=== PATIENT | male | born 1965 | race Caucasian/White ===

== ENCOUNTER 2016-08-24 06:12 | Day surgery (SDC) | payer BC ==
--- NOTE | 2016-07-26 07:23 | HP ---
CC: Dr. Daria Paige * HISTORY AND PHYSICAL: DATE OF PLANNED ADMISSION AND SURGERY: 08/24/16 HISTORY OF PRESENT ILLNESS: Mr. Prabhakar is a 50-year-old white male, who is admitted with a large left hydrocele for surgical repair. Mr. Prabhakar was noted to have a large left hydrocele about more than 10 years ago. He had a scrotal ultrasound, which confirmed the above finding. Because the patient was not bothered by the condition, he did not seek any surgical correction and has been managing it most conservatively. Over the last 2 to 3 years, the hydrocele has gotten a lot larger, and has been more symptomatic interfering with his physical activities. It is also causing a feeling of heaviness and pulling sensation in the left scrotum and inguinal area. There is no history of any inguinal or scrotal trauma or surgery. No history of any voiding symptoms. PAST MEDICAL HISTORY AND SYSTEM REVIEW: He is hypertensive, controlled on doxazosin 4 mg daily and on lisinopril/HCTZ 20/12.5 mg daily. He has hyperlipidemia, on atorvastatin 10 mg daily. He has borderline diabetes , but is not on any treatment. He has history of gout, on allopurinol 100 mg daily. He has history of sleep apnea which has improved significantly after he lost weight on diet. He denies any allergies to medications. There is no history of any cardiac or pulmonary diseases or symptoms. He is a nonsmoker. FAMILY HISTORY: Negative for prostate carcinoma. PHYSICAL EXAMINATION GENERAL: Moderately overweight, otherwise healthy looking white male. VITAL SIGNS: Blood pressure 140/100. HEART: Regular and rhythmic. No murmurs. LUNGS: Clear. ABDOMEN: Soft. No masses, no tenderness, and no CVA tenderness. EXTERNAL GENITALIA: Circumcised. There are no penile lesions. The right testis feels normal. There is a very large left hydrocele measuring about 15 cm in diameter. No inguinal hernia is noted. The hydrocele is nonreducible. RECTAL: Exam shows a non-enlarged and non-suspicious prostate. LABORATORY DATA: Urinalysis is negative. For further evaluation of the left scrotal swelling, the patient had a scrotal ultrasound in the office. The study confirmed a very large left hydrocele. The left testis looked normal. The right testis looked normal. IMPRESSION: Large symptomatic left hydrocele. PLAN: For surgical repair through a scrotal approach. I discussed the operation in detail. Some of the potential complications including infection and hematoma were discussed. The patient also understands that there will be a significant degree of post- operative swelling, which might last for several weeks, but will ultimately resolve. All his questions were answered. [id number]/[facility] #: [id number] LEONCIO
[~2016-08-24 06:12] MED LIST: Buffered Lidocaine 0.9% SYRIN* 5 ML/SYR SYRINGE INTRADERM ONE
[2016-08-24] MEDS ORDERED: cefTRIAXone(*) 2 GM ADDV.VIAL IVPB ONE (06:19)
[2016-08-24] MEDS ORDERED: Buffered Lidocaine 0.9% SYRIN* 5 ML/SYR SYRINGE ONE (06:19)
[2016-08-24] MEDS ORDERED: Bupivacaine 0.5% SDV PF* 30 ML VIAL ONE (07:19)
[2016-08-24] MEDS ORDERED: Midazolam* 1 MG/ML 5 ML VIAL (5 MG) ONE (07:31)
[2016-08-24] MEDS ORDERED: Propofol* 10 MG/ML 20 ML BTL IV PUSH ONE (07:31)
[2016-08-24] MEDS ORDERED: fentaNYL* 50 MCG/ML 2 ML VIAL (100 MCG VIAL) ONE ×2 (07:31→08:26)
[2016-08-24] MEDS ORDERED: Dexamethasone IV* 4 MG/ML 1 ML (4 MG) ONE (07:31)
[2016-08-24] MEDS ORDERED: Atracurium* 10 MG/ML 10 ML VIAL ONE (07:31)
[2016-08-24] MEDS ORDERED: Succinylcholine* 20 MG/ML 10 ML VIAL ONE (07:59)
[2016-08-24] MEDS ORDERED: Ondansetron INJ* 2 MG/ML VIAL ONE ×2 (08:48→10:37)
[2016-08-24] MEDS ORDERED: HYDROmorphone* 1 MG/ML 1 ML SYR IV PRN (08:53)
[2016-08-24] MEDS ORDERED: HYDROcodone/ACETAMIN 5-325 MG* 1 TAB PO PRN (08:53)
[2016-08-24] MEDS ORDERED: DiMENhydriNATE IV* 50 MG/ML VIAL IV PUSH PRN (08:53)
[2016-08-24] MEDS ORDERED: Ondansetron INJ* 2 MG/ML VIAL IV PRN (08:53)
[2016-08-24] MEDS ORDERED: fentaNYL* 50 MCG/ML 2 ML VIAL (100 MCG VIAL) IV PRN (08:53)
[2016-08-24] MEDS ORDERED: oxyCODONE TAB* 5 MG TAB PO PRN (08:53)
[2016-08-24] MEDS ORDERED: Neostigmine Methylsulfate* 2 MG/2 ML SYRINGE ONE (09:11)
[2016-08-24] MEDS ORDERED: Glycopyrrolate IV* 0.2 MG/ML 1 ML VIAL ONE ×2 (09:11→09:18)
[2016-08-24] MEDS ORDERED: DiMENhydriNATE IV* 50 MG/ML VIAL ONE (09:54)
[2016-08-24] MEDS ORDERED: HYDROcodone/ACETAMIN 5-325 MG* 1 TAB ONE (10:44)
[2016-08-24] MEDS ORDERED: Scopolamine 1.5 mg* PATCH ONE ×2 (11:38)
[2016-08-24 11:45] VITALS: BP 139/100
--- NOTE | 2016-08-24 12:20 | OP ---
CC: Dr. Daria Paige * DATE OF OPERATION: 08/24/16 - [facility] DATE OF : 61 SURGEON: Torsten Pedraza MD [employer] DEVELOPER: VIOLETA Schulz ANESTHESIOLOGIST: Spencer Aly MD ANESTHESIA: General PRE-OP DIAGNOSIS: Left hydrocele. POST-OP DIAGNOSIS: Left hydrocele. OPERATIVE PROCEDURE: Left hydrocelectomy (scrotal approach). INDICATIONS: Mr. Prabhakar is a 50-year-old white male, who had progressive enlarging left hydrocele present for about 10 years. Scrotal ultrasound confirmed a large hydrocele with a normal-looking testicle. No history of any inguinal hernias. Because of the above history and the increasing size of the hydrocele, which has become significantly symptomatic, surgical repair was advised and accepted. FINDINGS: Pathology exam under anesthesia showed a 15-cm diameter left hydrocele. It was nonreducible. Upon left scrotal exploration, the hydrocele sac looked normal. A total of about 600 cc of hydrocele fluid was drained. The testicle looked and felt normal. There were no inguinal hernias noted. DESCRIPTION OF PROCEDURE: After successful general anesthesia with the patient in the supine position and after proper scrubbing and draping, a transverse incision was carried in the mid anterior left hemiscrotum. The incision was deepened through the dartos muscle. The hernia sac was identified and was dissected from the overlying dartos muscle and was delivered through the incision. The hydrocele sac was then opened and the fluid drained and measured. The hydrocele sac was then trimmed and partially excised in 2 portions. Care was taken not to interfere with the spermatic cord and its structures. The hydrocele sac was then everted and approximated to itself using a running locking suture of 4-0 Vicryl. Care was taken not to tighten the spermatic cord. Good hemostasis was achieved. The testicle was already placed in the scrotal cavity and the cavity was irrigated with saline. After making sure there was very good hemostasis, a [place] drain was left in the scrotal cavity and brought out through the lower aspect of the scrotum. The scrotal incision was then closed using a running suture of 4-0 Vicryl for the dartos muscle and the skin was closed using interrupted sutures of 4-0 chromic. The Naz drain was transfixed to the skin with a Prolene suture. The patient tolerated the procedure well and left the operating room in good condition. The blood loss was negligible. The specimen was portions of hydrocele sac. All the counts were correct. [id number]/[facility] #: [id number] [facility]ITAL[facility]
== END 2016-08-24 11:48 | disposition home or self-care (01) ==
LOC: OR 06:12
PROVIDERS: ATTEND Urology
DX: N43.2 Other hydrocele (principal); R73.03 Prediabetes; E78.5 Hyperlipidemia, unspecified; I10 Essential (primary) hypertension
CPT/HCPCS: 88302; A9270-GY; J0330; J0696; J1100; J1240; J2250; J2405; J2704; J3010

== ENCOUNTER 2016-12-30 08:20 | Day surgery (SDC) | payer BC ==
--- NOTE | 2016-12-29 18:58 | HP ---
CC: Dr. Daria Paige * HISTORY AND PHYSICAL: DATE OF PLANNED ADMISSION AND SURGERY: 12/30/16 HISTORY OF PRESENT ILLNESS: Mr. Prabhakar is a 51-year-old white male who is admitted with a left ureteral calculus for cystoscopy, left ureteroscopy, laser lithotripsy, and left ureteral stent placement. Mr. Prabhakar presented to the emergency room one week ago with symptoms of left renal colic. He had a noncontrast CT of the abdomen and pelvis, which showed a 5- mm calculus at the left ureterovesical junction. The patient was managed conservatively with pain medications and with alpha blockers. He continued to have on and off episodes of severe left flank pain requiring the frequent use of pain medications and oral narcotics for control. He had a renal ultrasound in the office, which showed a 6-mm calculus at the left ureterovesical junction associated with edema of the adjacent ureteral wall , mild left hydronephrosis, and decreased ureteral jets from the left orifice. The rest of the ultrasound was negative showing only simple renal cysts. Because of the frequent and recurrent episodes of acute flank pain, he has not been able to work with the condition and after discussing the options of management including continued conservative management, the patient is admitted for the above procedure. PAST MEDICAL HISTORY AND SYSTEM REVIEW: The patient had a left hydrocelectomy 4 months ago. It was uncomplicated, he did very well afterwards. He is hypertensive, maintained on doxazosin 4 mg daily, lisinopril/HCTZ 20/12.5 mg daily. He has hyperlipidemia, on Lipitor 10 mg daily. He has history of gout, on allopurinol 100 mg daily. He has borderline diabetes, on diet only, on no medications. He denies any history of any cardiac or pulmonary diseases or symptoms. ALLERGIES: He denies any allergies to medications. PHYSICAL EXAMINATION GENERAL: Pleasant white male, who looks in moderate pain. VITAL SIGNS: Blood pressure 150/90, pulse of 100, temperature 98. LUNGS: Normal. HEART: Normal. ABDOMEN: He has left CVA tenderness. EXTERNAL GENITALIA: Normal, and a well-healed left scrotal incision. IMPRESSION: A 6-mm calculus at the left ureterovesical junction with recurrent episodes of acute renal colic over the last week. PLAN: Considering the above history and the persistent pain, I gave the patient the option of continued conservative management versus proceeding with endoscopic stone extraction. The patient wants to proceed with the procedure. The plan therefore is for cystoscopy, left ureteroscopy, laser lithotripsy, and left ureteral stent placement. I discussed the procedure in detail with the patient and his and all their questions were answered. [id number]/[facility] #: [id number] MTDD
[~2016-12-30 08:20] MED LIST changes: +DiMENhydriNATE IV* 50 MG/ML VIAL IV PUSH PRN; +Famotidine IV* 10 MG/ML 2 ML (20 mg) IV ONE; +PROCHLORPERAZINE INJ 5 MG/ML 2 ML VIAL IV PRN; +Scopolamine 1.5 mg* PATCH TRANSDERM PRN
[2016-12-30] MEDS ORDERED: Buffered Lidocaine 0.9% SYRIN* 5 ML/SYR SYRINGE ONE (08:26)
[2016-12-30] MEDS ORDERED: Famotidine IV* 10 MG/ML 2 ML (20 mg) ONE (08:26)
[2016-12-30] MEDS ORDERED: cefTRIAXone(*) 2 GM ADDV.VIAL IVPB ONE (08:26)
[2016-12-30] MEDS ORDERED: KETAMINE HCL* 50 MG/ML 10 ML VIAL ONE (08:28)
[2016-12-30] MEDS ORDERED: fentaNYL* 50 MCG/ML 2 ML VIAL (100 MCG VIAL) ONE ×3 (08:28→16:17)
[2016-12-30] MEDS ORDERED: Midazolam* 1 MG/ML 5 ML VIAL (5 MG) ONE (08:28)
[2016-12-30] MEDS ORDERED: Iohexol 180 (CONTRAST) 10 ML SDV IV ONE (09:32)
[2016-12-30] MEDS ORDERED: Morphine INJ* 10 MG/ML 1 ML CARPUJECT ONE ×2 (09:53→12:50)
[2016-12-30] MEDS ORDERED: Propofol* 10 MG/ML 20 ML BTL IV PUSH ONE (09:53)
[2016-12-30] MEDS ORDERED: PROCHLORPERAZINE INJ 5 MG/ML 2 ML VIAL ONE ×2 (09:53→11:04)
[2016-12-30] MEDS ORDERED: Ondansetron INJ* 2 MG/ML VIAL ONE (09:53)
[2016-12-30] MEDS ORDERED: Dexamethasone IV* 4 MG/ML 1 ML (4 MG) ONE (09:53)
[2016-12-30] MEDS ORDERED: Lidocaine 2% PF * 5 ML VIAL ONE (09:53)
[2016-12-30] MEDS ORDERED: Labetalol IV* 5 MG/ML 20 ML VIAL ONE (10:09)
[2016-12-30] MEDS ORDERED: Furosemide IV* 10 MG/ML 2 ML VIAL (20 MG) ONE (10:09)
[2016-12-30] MEDS ORDERED: oxyCODONE/Acetamin 5/325 MG* TAB ONE ×3 (11:04→16:17)
[2016-12-30] MEDS: fentaNYL* 50 MCG/ML 2 ML VIAL (100 MCG VIAL) IV PRN ×5 (11:07→16:19)
--- NOTE | 2016-12-30 11:07 | RAD ---
INDICATION: Left ureteral calculus COMPARISONS: CT dated December 25, 2016 TECHNIQUE: Fluoroscopy was provided for a retrograde pyelogram. Total fluoroscopy time is: 6 seconds FINDINGS: Spot images demonstrate contrast within the left renal collecting system. IMPRESSION: FLUOROSCOPY WAS PROVIDED FOR A RETROGRADE PYELOGRAM CPT II Codes: 6045F
[2016-12-30] MEDS: oxyCODONE/Acetamin 5/325 MG* TAB PO PRN ×2 (11:09→12:05)
[2016-12-30] MEDS: Morphine INJ* 2 MG/ML 1 ML CARPUJECT IV PRN ×3 (12:51→14:52)
--- NOTE | 2016-12-30 13:16 | OP ---
CC: Dr. Daria Paige OPERATIVE REPORT: DATE OF OPERATION: 12/30/16 DATE OF : 61 SURGEON: Torsten Pedraza MD ANESTHESIOLOGIST: Dr. Darion Maguire. ANESTHESIA: General. PRE-OP DIAGNOSES: 1. Distal left ureteral calculus. 2. Recurrent episodes of left renal colic due to above. POST-OP DIAGNOSES: 1. Distal left ureteral calculus. 2. Recurrent episodes of left renal colic due to above. OPERATIVE PROCEDURE: 1. Cystoscopy, left ureteroscopy and extraction of left ureteral calculus (5 mm ). 2. Left retrograde pyelography. INDICATION FOR PROCEDURE: Mr. Prabhakar is a 51-year-old white male, who presented one week ago with symptoms of left renal colic and was noted on a noncontrast CT of the abdomen and pelvis to have a 4 to 5 mm calculus in the distal left ureter. He was managed conservatively with alpha blockers and pain medications. He continued to be significantly symptomatic, having recurrent episodes of renal colic, requiring the frequent use of oral narcotics for pain control. Office renal ultrasound yesterday showed the stone to be in the same position at the left ureterovesical junction associated with mild left hydronephrosis and decreased jets from the left orifice. There was mild edema of the adjacent ureteral mucosa. Because of the above history and findings and the recurrent episodes of acute pain and after discussing the options of management, the above procedure was advised and accepted. PATHOLOGY AT CYSTOSCOPY: The penile and bulbar urethrae looked normal. The prostatic urethra measured about 2.5 cm in length and there was early prostate enlargement. Examination of the bladder showed edema of the left trigone and the left ureteral orifice. The bladder mucosa looked otherwise normal. There were no suspicious of bladder lesions seen. No calculi or diverticula were noted. The right ureteral orifice looked normal. Upon left ureteroscopy, there was a 5-mm calculus just the proximal to the ureteral orifice. The calculus had the gross appearance of calcium oxalate stone. Left retrograde pyelography showed minimal dilatation of the collecting system. DESCRIPTION OF PROCEDURE: After successful general anesthesia, the patient was placed in the lithotomy position and was prepped and draped for a cystoscopy. The cystoscopy was performed. The bladder was inspected and the above findings were noted. A flexible tip hybrid wire was then introduced into the left orifice and successfully positioned in the area of the renal pelvis. The cystoscope was removed and a 6.5 tapered semi-rigid ureteroscope was then introduced inside the bladder. A flexible tip basket was then introduced through the port of the uteroscope and the flexible tip was then introduced into the left ureteral orifice adjacent to the guidewire. That allowed the atraumatic introduction of the ureteroscope into the ureter. The calculus was identified. It was felt that it is small enough that can be extracted without having to break it with a laser. The stone was then engaged within the basket and was extracted with no trauma. The ureteroscope was then removed and the cystoscope was introduced over the guidewire. A size 5-Maori open-ended catheter was fed on top of the guidewire and retrograde pyelography was performed, filling the collecting system. The open- ended catheter was then removed. There was prompt strong efflux of urine and contrast from the left ureteral orifice. There was also good drainage of all the contrast from the left kidney and ureter. With the above findings, it was decided not to place a ureteral stent. The bladder was emptied and the cystoscope was removed. The patient tolerated the procedure well and left the operating room in good condition. The specimen was left ureteral calculus and was sent for chemical analysis. [id number]/[facility] #: [id number] MTDD
[2016-12-30] MEDS ORDERED: Ketorolac INJ* 30 MG/ML 1 ML VIAL ONE (16:53)
[2016-12-30 17:14] VITALS: BP 149/92
[2016-12-30] MEDS ORDERED: Ondansetron ODT TAB* 4 MG ONE (18:04)
[2017-01-02] MEDS ORDERED: Scopolamine PATCH Remove* 1 NOTE MISC PATCH OFF ONE (06:00)
== END 2016-12-30 18:23 | disposition home or self-care (01) ==
LOC: OR 08:20
PROVIDERS: ATTEND Urology
DX: N13.2 Hydronephrosis with renal and ureteral calculous obstruction (principal); I10 Essential (primary) hypertension; E78.5 Hyperlipidemia, unspecified; F41.9 Anxiety disorder, unspecified
CPT/HCPCS: 74420; 82365; 88300; A9270-GY; J0696; J0780; J1100; J1885; J1940; J2250; J2270; J2405; J2704; J3010

== ENCOUNTER 2017-02-22 07:12 | Emergency (ER) | payer BC ==
--- OUTSIDE RECORDS SUMMARY | 2017-02-22 07:26 | XMS REPORT ---
:1965 External Reference #:[id number] Author Organization [facility] Address [address] [place] [address] Phone [phone] Care Team Providers Name Role Phone Daria Pagie MD Primary Care Physician Unavailable Payers Type Date Identification Numbers Payment Provider Subscriber Commercial Policy Number: [id number] BS [place] [employer] Giovanni Prabhakar PayID: [id number] [address] [place] [address] Problems Date Description Provider Status Onset: 05/15/2014 Essential hypertension Active Onset: 05/15/2014 Pure hypercholesterolemia Active Onset: 10/20/2014 Retinal detachment with retinal Rowena Chuck Iraheta O.D. Active defect Onset: Gout Active Onset: Anxiety Active Onset: Panic attack Active Onset: 12/29/2014 Ocular hypertension Zachary Garrett M.D. Active Onset: 12/29/2014 Retinal detachment Zachary Garrett M.D. Active Onset: 12/29/2014 Presence of intraocular lens Zachary Garrett M.D. Active Onset: 12/31/2015 Vitreous degeneration Zachary Garrett M.D. Active Onset: 12/31/2015 Epiretinal membrane Zachary Garrett M.D. Active Onset: 06/30/2016 Other secondary cataract, left eye Zachary Garrett M.D. Active Onset: 06/30/2016 Primary open angle glaucoma of right Zachary Garrett M.D. 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[place] [employer] Use Consumes 1 glass of wine per day Smoking Patient has never smoked Daily Caffeine Does Not Consume Caffeine DRINKS COFFEE RARELY Allergies, Adverse Reactions, Alerts Date Description Reaction Status Severity Comments 05/15/2014 NKDA active Medications Medication Date Status Form Strength Qnty SIG Indications Ordering Provider Allopurinol Active Tablets 100mg Unknown 000 Lisinopril-Hydr Active Tablets 20-12.5mg Unknown ochlorothiazide 000 Lorazepam Active Tablets 1mg Unknown 000 Aspirin Active Tablets 81mg Unknown 000 Multiple Active Tablets Unknown Vitamins 000 Doxazosin Active Tablets 8mg TK 1 T Unknown Mesylate 000 PO D Magnesium Active Unknown Citrate 000 Atorvastatin Active Tablets 20mg Unknown Calcium 000 Pred Forte Hx Suspension 1% 5ml One drop H40.1111 Zachary Woods 017 - three Arleo, times a M.D. 017 day in the right eye for three days, then disconti nue. Fish Oil Hx Unknown 000 - 017 Vital Signs Date Vital Result Comment 01/23/2017 BP Systolic 125 mmHg BP Diastolic 70 mmHg Heart Rate 68 /min Respiratory Rate 15 /min 07/25/2016 BP Systolic 195 mmHg BP Diastolic 104 mmHg Heart Rate 85 /min Respiratory Rate 16 /min Results Description No Information Procedures Date CPT Code Description Status 01/23/2017 22726 Remove Secondary Cataract, Laser (Yag) Completed 01/19/2017 99931 Scanning Computerized Ophthalmic Diagnostic Imag Completed Posterior Seg On 01/19/2017 84411 Visual Field Exam Extended Completed 01/19/2017 53983 Determination Of Refractive State Completed 01/19/2017 55524 Est Patient Comprehensive Exam Completed 07/25/2016 58895 Trabeculoplasty By Laser Surgery Completed 06/30/2016 18978 Scanning Computerized Opthalmic Diagnostic Posterior Completed Seg Retina 06/30/2016 12528 Est Patient Comprehensive Exam Completed 12/31/2015 53907 Scanning Computerized Ophthalmic Diagnostic Imag Completed Posterior Seg On 12/31/2015 32817 Visual Field Exam Extended Completed 12/31/2015 22532 Determination Of Refractive State Completed 12/31/2015 67923 Est Patient Comprehensive Exam Completed 06/29/2015 64035 Est Patient Comprehensive Exam Completed 12/29/2014 74445 Est Patient Intermediate Exam Completed 12/29/2014 73291 Scanning Computerized Ophthalmic Diagnostic Imag Completed Posterior Seg On 12/18/2014 37391 Visual Field Exam Extended Completed 10/20/2014 54870 Est Patient Comprehensive Exam Completed 05/15/2014 77023 Fundus Photography With Interpretation And Report Completed 05/15/2014 85215 Est Patient Intermediate Exam Completed 11/14/2013 39331 Visual Field Exam Extended Completed 11/14/2013 56792 Est Patient Intermediate Exam Completed 11/14/2013 82920 Pachymetry Completed 05/08/2013 90442 Extracapsular Cataract Extraction W/Intraocular Lens Completed 05/01/2013 03760 Extracapsular Cataract Extraction W/Intraocular Lens Completed 04/25/2013 22025 Ophthalmic Biometry Completed 04/01/2013 64397 New Patient Comprehensive Exam Completed Encounters Type Date Location Provider CPT E/M Dx Office Visit 09/05/2016 Zachary Garrett MD, Zachary [place], [address] H40.1111 8:45a willi Emerson H35.372 Z96.1 H40.052 Office Visit 04/25/2013 8:15a Zachary Garrett MD, Zachary Garrett, [address] 366.16 willi Emerson 366.16 Plan of Care 01/23/2017 - Zachary Garrett M.D.H26.492 Other secondary cataract, left eyeComments:Smoking can increase the risk of developing or worsening any eye related disease, as well as affect your overall health. If you are a smoker, we strongly recommend that you quit.If you are not a smoker, we strongly recommend that you do not start. Dr. Garrett performed a Yag Capsulotomy in the office for the clouding in the sac that holds your artificial lens on your left eye. The left eye was dilated, so your vision will be blurry for the remainder of the day. The dilation may last until tomorrowafternoon, which is also normal. You may see an increase in floaters for the next few days following your procedure, which should settle out of the way. If you have any questions or concerns regarding your procedure, please call our office at .Follow up:01/26/17 @ 8AM FOR MR CHECK WITH KXAJUFFNOEP18.1111 Primary open- angle glaucoma, right eye, mild pyqnqL09.372 Puckering of macula, left eyeZ96.1 Presence of intraocular lens
--- OUTSIDE RECORDS SUMMARY | 2017-02-22 07:26 | XMS REPORT ---
:1965 External Reference #:[id number] Author Organization [facility] Address [address] [place] [address] Phone [phone] Care Team Providers Name Role Phone Daria Paige M.D. 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 Primary Care Physician Unavailable Payers Type Date Identification Numbers Payment Provider Subscriber Commercial Effective: Policy Number: BC/JUWAN Of YANIV Davila Kimmy Aki 2014 [id number] Group Name: Titus Mejia [facility] [address] [address] PayID: [id number] [place] [address] Problems Date Description Provider Status Onset: 03/20/2013 Benign essential hypertension Manish Fernandez M.D. Active Onset: 03/20/2013 Hyperlipidemia Manish Fernandez M.D. Active Onset: 03/20/2013 Anxiety state Manish Fernandez M.D. Active Onset: 03/20/2013 Gout Manish Fernandez M.D. Active Onset: 05/15/2015 Essential hypertension Daria Paige M.D. Active Onset: 05/18/2015 Type 2 diabetes mellitus Daria Paige M.D. Active Onset: 11/18/2015 Non-alcoholic fatty liver Daria Paige M.D. Active Family History Date Family Member(s) Problem(s) Comments General Non Contributory Father Unknown Mother Depression Mother Coronary Artery Disease (CAD) Mother Diabetes Mellitus, II First Daughter Depression : (age 38 Years) First Brother due to CAD [place] Social History Type Date Description Comments Marital Status Legal Status: Occupation [employer] [facility] [place] [employer] ETOH Use Occasional Smoking Patient has never smoked Exercise Type/Frequency Exercises sporadically Allergies, Adverse Reactions, Alerts Date Description Reaction Status Severity Comments 03/20/2013 NKDA active Medications Medication Date Status Form Strength Qnty SIG Indications Ordering Provider Atorvastatin Active Tablets 10mg 90tabs 1 By Daria Calcium 016 Mouth [place], Every Day M.D. Doxazosin Active Tablets 4mg 30tabs 1 Tab By I10 Daria Mesylate 016 Mouth [place], Every Day M.D. Onetouch Verio Active Kit W/Device 1units use as Daria Campos directed, [place], test once M.D. daily e11.9 Lancets Ultra Active Misc Thin 30G 2Boxes test Daria Thin 30G 016 blood [place], glucose M.D. daily e11.9 last appt 04/2015 Onetouch Verio Active Strips 100uni Test Once Daria Campos ts Daily Idania Paige Lisinopril-Hydr Active Tablets 20-12.5mg 60tabs 2 By I10 Daria ochlorothiazide 016 Mouth [place], Every Day M.D. Allopurinol Active Tablets 100mg 30tabs Take 1 M10.9 Kierra 015 Tablet By BridgetLeticia MANAGER [employer] Every Day Aspir-81 Active Tablets 81mg 100tab [address] po [address]d Sandy [address] DR, M.D. Lorazepam Active Tablets 1mg 30tabs 1 by F41.9 Daria 014 mouth [place], o2neekh M.D. as needed anxiety F41.8 Doxazosin Mesylate 05/14/ Hx Tablets 8mg 30tabs Take 1 Tab I10 Daria Paige, 2015 - Daily M.D. 2015 Escitalopram Oxalate 01/28/ Hx Tablets 10mg 30tabs 1 By Mouth Manish Fernandez M.D. 2014 - Every Day 2015 Lisinopril-Hydrochlo 04/11/ Hx Tablets 20-12. 60tabs 2 By Mouth I10 jose luis Connell 2015 - 5mg Every Day M.D. 2015 Escitalopram Oxalate 04/04/ Hx Tablets 10mg 30tabs 1 by mouth 311 Manish Fernandez M.D. 2014 - every day 2014 Lisinopril-Hydrochlo 04/04/ Hx Tablets 20-25m 30tabs Take 1 Tablet 401.1 Idania Maynardiazolimpia 2014 - g By Mouth 04/11/ Every Day 2014 Simvastatin 03/20/ Hx Tablets 20mg 30tabs 1 by mouth 272.4 Manish Fernandez M.D. 2013 - every night 10/03/ at bedtime 2014 Amlodipine Besylate 03/20/ Hx Tablets 5mg 30tabs 1 po qd [facility]/ [place] 2013 [place] 03/20/ Hx Tablets 0.6mg 30tabs 1 by mouth M10.9 Daria Paige, 2014 - four times a M.D. day as needed 2016 Lisinopril/Hydrochlo 03/20/ Hx Tablets 20-25m 30tabs Take 1 Tablet 401.1 Idania Maynard 2013 - g By Mouth 04/04/ Every Day 2014 Doxazosin Mesylate 03/20/ Hx Tablets 4mg 45tabs take 1 02/21 I10 [place]ary [place] 2013 - tablets by Idania Nguyen 05/14/ mouth every 2015 Acyclovir / Hx Ointment 5% apply every 3 Manish Fernandez M.D. 0000 - hours 6x/day 2016 Fish Oil / Hx Capsules 1000mg 1 by mouth Unknown 0000 - every day 2016 Multivitamins / Hx Capsules 1 by mouth Unknown 0000 - every day 2016 Magnesium 00/ Hx Tablets 250mg 1 by mouth qd Unknown 0000 - 2016 Potassium 00/ Hx Tablets 250mg 1 po qd Unknown 0000 - 2016 Zinc / Hx Tablets 30mg 1 po qd Unknown 0000 - 2016 Vital Signs Date Vital Result Comment 01/25/2017 BP Systolic 140 mmHg BP Diastolic 98 mmHg BP Systolic Recheck 150 mmHg BP Diastolic Recheck 100 mmHg Heart Rate 80 /min Body Temperature 97.9 F Respiratory Rate 18 /min Height 72 inches 6'0" Weight 253.00 lb BMI (Body Mass Index) 34.3 kg/m2 11/18/2015 BP Systolic 148 mmHg BP Diastolic 94 mmHg Heart Rate 78 /min Body Temperature 98.1 F Respiratory Rate 16 /min Height 73 inches 6'1" Weight 243.50 lb BMI (Body Mass Index) 32.1 kg/m2 05/15/2015 BP Systolic 140 mmHg BP Diastolic 80 mmHg Heart Rate 80 /min Respiratory Rate 16 /min Height 73 inches 6'1" Weight 271.00 lb BMI (Body Mass Index) 35.8 kg/m2 10/03/2014 BP Systolic 140 mmHg BP Diastolic 90 mmHg Heart Rate 88 /min Body Temperature 97.2 F Respiratory Rate 16 /min Height 73 inches 6'1" Weight 271.00 lb BMI (Body Mass Index) 35.8 kg/m2 04/11/2014 BP Systolic 170 mmHg BP Diastolic 110 mmHg Heart Rate 76 /min Body Temperature 97.2 F Respiratory Rate 17 /min 04/04/2014 BP Systolic 150 mmHg BP Diastolic 98 mmHg Heart Rate 76 /min Body Temperature 97.2 F Respiratory Rate 16 /min Height 73 inches 6'1" Weight 213.50 lb BMI (Body Mass Index) 28.2 kg/m2 04/24/2013 BP Systolic 140 mmHg BP Diastolic 90 mmHg Heart Rate 72 /min Body Temperature 97.9 F Respiratory Rate 18 /min Height 73.5 inches 6'1.50" Weight 271.00 lb BMI (Body Mass Index) 35.3 kg/m2 03/20/2013 BP Systolic 132 mmHg BP Diastolic 96 mmHg Heart Rate 80 /min Body Temperature 97.4 F Height 73.5 inches 6'1.50" Weight 268.38 lb BMI (Body Mass Index) 34.9 kg/m2 Results Test Date Test Result H/L Range Note Urinalysis Profile 12/25/2016 Urine Color Yellow Urine Appearance Clear Urine Specific [place] 1.014 1.010-1.030 Urine pH 5.0 5-9 Urine Urobilinogen Negative Negative Urine Ketones Negative Negative Urine Protein Negative Negative Urine Leukocytes Negative Negative Urine Blood 2+ Negative Urine Nitrite Negative Negative Urine Bilirubin Negative Negative Urine Glucose Negative Negative Urine White Blood Cell Trace(0-5/hpf) Absent Urine Red Blood Cell 2+(6-10/hpf) Absent Urine Bacteria Absent Absent CBC Auto Diff 12/25/2016 White Blood Count 12.0 10^3/uL High 3.5-10.8 Red Blood Count 6.03 10^6/uL High 4.0-5.4 Hemoglobin 15.4 g/dL 14.0-18.0 Hematocrit 47 % 42-52 Mean Corpuscular Volume 78 fL Low 80-94 Mean Corpuscular Hemoglobin 26 pg Low 27-31 Mean Corpuscular HGB Conc 33 g/dL 31-36 Red Cell Distribution Width 14 % 10.5-15 Platelet Count 153 10^3/uL 150-450 Mean Platelet Volume 8 um3 7.4-10.4 Abs Neutrophils 10.9 10^3/uL High 1.5-7.7 Abs Lymphocytes 0.5 10^3/uL Low 1.0-4.8 Abs Monocytes 0.6 10^3/uL 0-0.8 Abs Eosinophils 0 10^3/uL 0-0.6 Abs Basophils 0 10^3/uL 0-0.2 Abs Nucleated RBC 0 10^3/uL Granulocyte % 90.6 % High 38-83 Lymphocyte % 4.3 % Low 25-47 Monocyte % 4.7 % 1-9 Eosinophil % 0.1 % 0-6 Basophil % 0.3 % 0-2 Nucleated Red Blood Cells % 0 Comp Metabolic Panel 12/25/2016 Sodium 136 mmol/L 133-145 Potassium 3.5 mmol/L 3.5-5.0 Chloride 103 mmol/L 101-111 Co2 Carbon Dioxide 26 mmol/L 22-32 Anion Gap 7 mmol/L 2-11 Glucose 129 mg/dL High 70-100 Blood Urea Nitrogen 16 mg/dL 6-24 Creatinine 1.30 mg/dL High 0.67-1.17 BUN/Creatinine Ratio 12.3 8-20 Calcium 9.7 mg/dL 8.6-10.3 Total Protein 7.1 g/dL 6.4-8.9 Albumin 4.4 g/dL 3.2-5.2 Globulin 2.7 g/dL 2-4 Albumin/Globulin Ratio 1.6 1-3 Total Bilirubin 0.50 mg/dL 0.2-1.0 Alkaline Phosphatase 74 U/L 34-104 Alt 29 U/L 7-52 Ast 28 U/L 13-39 Egfr Non- 57.7 >60 Egfr 74.3 >60 1 Laboratory test finding 12/25/2016 C Reactive Protein 1.73 mg/L < 5.00 2 Poc Urinalysis 12/25/2016 Poc Glucose, Urine Negative Negative Poc Bilirubin, Urine Negative Negative Poc Ketone, Urine Trace Negative Poc Specific [place], Urine >=1.030 1.010-1.030 Poc Blood, Urine 2+ Negative Poc pH, Urine 5.5 5-9 Poc Protein, Urine Negative Negative Poc Urobilinogen, Urine 0.2 Negative Poc Nitrite, Urine Negative Negative Poc Leukocytes, Urine Negative Negative Poc Color, Urine Yellow Poc Clarity, Urine Clear 3 Laboratory test finding 05/06/2016 Surgical Pathology SEE RESULT BELOW 4, 5 Comprehensive Metabolic 11/18/2015 Sodium 138 mEq/L 134-149 Prof Potassium 3.9 mEq/L 3.6-5.5 Chloride 99 mEq/L 94-112 Carbon Dioxide 26 mEq/L 21-32 Glucose 106 mg/dL High 70-105 BUN 18 mg/dL 6-26 Creatinine 1.0 mg/dL 0.6-1.4 BUN/Creat Ratio 18.0 CALC 8.0-36.0 Calcium 9.9 mg/dL 8.6-10.2 Total Protein 7.1 g/dL 6.4-8.3 Albumin 4.6 g/dL 3.8-5.5 Globulin 2.5 g/dL 2.0-4.8 A/G Ratio 1.8 CALC 0.6-2.3 Alk. Phosphatase 78 U/L 22-95 Alt (SGPT) 34 U/L 7-35 Ast (Sgot) 31 U/L 5-34 Total Bilirubin 0.5 mg/dL 0.2-1.3 GFR Non- >60 ml/min/1.73m^ >=60 GFR >60 ml/min/1.73m^ >=60 Lipid Profile 11/18/2015 Cholesterol 235 mg/dL High 120-200 Triglycerides 129 mg/dL 30-200 HDL Cholesterol 37 mg/dL 30-70 LDL (Calculated) 172 CALC High 0-129 VLDL Cholesterol 26 mg/dL 0-50 HDL Risk Factor 6.4 CALC High 0.0-4.4 Complete Blood Count 11/18/2015 WBC 4.5 x10^3/UL 3.6-9.6 RBC 5.85 x10^6/UL High 3.90-5.70 HGB 15.3 g/dL 12.1-17.2 HCT 48 % 36-50 MCV 81.0 fL Low 82.2-97.4 MCH 26.1 pg Low 27.6-33.3 6 MCHC 32.2 g/dL Low 33.0-35.5 7 RDW 14.4 % High 11.6-13.7 PLT 150 x10^3/UL 150-400 MPV 7.3 fL Low 7.4-10.4 Gran # 3.2 x10^3/UL 1.5-7.2 Lymph# 1.2 x10^3/UL 0.7-4.9 [place]# 0.1 x10^3/UL 0.1-0.9 Gran % 68.3 % 42.2-75.2 Lymph % 27.6 % 20.5-51.1 [place]% 4.1 % 1.7-9.3 Laboratory test finding 11/18/2015 Hemoglobin A1c (Fma) 5.2 % 4.1-5.7 Ict Hemoccult (Fma) 05/29/2015 Ict Hemoccult (1) 05/17/15 negative Ict Hemoccult-(2) 05/20/15 negative Ict-Hemoccult (3) 05/21/15 negative Comprehensive Metabolic Prof 05/15/2015 Sodium 146 mEq/L 134-149 Potassium 3.5 mEq/L Low 3.6-5.5 8 Chloride 104 mEq/L 94-112 Carbon Dioxide 29 mEq/L 21-32 Glucose 160 mg/dL High 70-105 9 BUN 15 mg/dL 6-26 Creatinine 1.1 mg/dL 0.6-1.4 BUN/Creat Ratio 13.6 CALC 8.0-36.0 Calcium 10.0 mg/dL 8.6-10.2 Total Protein 7.6 g/dL 6.4-8.3 Albumin 4.8 g/dL 3.8-5.5 Globulin 2.8 g/dL 2.0-4.8 A/G Ratio 1.7 CALC 0.6-2.3 Alk. Phosphatase 69 U/L 22-95 10 Alt (SGPT) 143 U/L High 7-35 11 Ast (Sgot) 89 U/L High 5-34 Total Bilirubin 0.8 mg/dL 0.2-1.3 GFR Non- >60 ml/min/1.73m^ >=60 GFR >60 ml/min/1.73m^ >=60 Lipid Profile 05/15/2015 Cholesterol 236 mg/dL High 120-200 Triglycerides 260 mg/dL High 30-200 HDL Cholesterol 36 mg/dL 30-70 LDL (Calculated) 148 CALC High 0-129 VLDL Cholesterol 52 mg/dL High 0-50 HDL Risk Factor 6.6 CALC High 0.0-4.4 Complete Blood Count 05/15/2015 WBC 4.9 x10^3/UL 3.6-9.6 RBC 6.02 x10^6/UL High 3.90-5.70 HGB 16.2 g/dL 12.1-17.2 HCT 49 % 36-50 MCV 81.0 fL Low 82.2-97.4 MCH 26.9 pg Low 27.6-33.3 MCHC 33.3 g/dL 33.0-35.5 RDW 13.3 % 11.6-13.7 PLT 178 x10^3/UL 150-400 MPV 7.0 fL Low 7.4-10.4 Gran # 3.3 x10^3/UL 1.5-7.2 Lymph# 1.4 x10^3/UL 0.7-4.9 Cul[place]on# 0.2 x10^3/UL 0.1-0.9 Gran % 64.1 % 42.2-75.2 Lymph % 29.9 % 20.5-51.1 [place]% 6.0 % 1.7-9.3 Laboratory test finding 05/15/2015 Uric Acid 10.5 mg/dL High 2.5-9.2 Ua - Non Micro (a) 05/15/2015 Appearance clear Color yellow Glucose, Urine (a/[facility] [place]/CTX) neg Bilirubin neg Ketones neg SP Grav 1.020 Blood neg PH 6.0 Protein neg Urobil 0.2 Nitrite neg Leukocytes ([facility] [place]/[facility]) neg Laboratory test finding 05/15/2015 Hemoglobin A1c (a) 6.8 % High 4.1- 5.7 Laboratory test finding 10/03/2014 Hemoglobin A1c 5.8 % % High 4.1-5.7 (a/[facility] [place],CX) Lipid Profile 10/03/2014 Cholesterol 242 mg/dL High 120-200 Triglycerides 187 mg/dL 30-200 HDL Cholesterol 38 mg/dL 30-70 LDL (Calculated) 167 CALC High 0-129 VLDL Cholesterol 37 mg/dL 0-50 HDL Risk Factor 6.4 CALC High 0.0-4.4 Laboratory test finding 10/03/2014 Uric Acid 8.2 mg/dL 2.5-9.2 Comprehensive Metabolic Prof 10/03/2014 Sodium 141 mEq/L 134-149 Potassium 3.6 mEq/L 3.6-5.5 Chloride 104 mEq/L 94-112 Carbon Dioxide 26 mEq/L 21-32 Glucose 142 mg/dL High 70-105 12 BUN 13 mg/dL 6-26 Creatinine 1.0 mg/dL 0.6-1.4 BUN/Creat Ratio 13.0 CALC 8.0-36.0 Calcium 9.4 mg/dL 8.6-10.2 Total Protein 7.7 g/dL 6.4-8.3 Albumin 4.6 g/dL 3.8-5.5 Globulin 3.1 g/dL 2.0-4.8 A/G Ratio 1.5 CALC 0.6-2.3 Alk. Phosphatase 74 U/L -95 Alt (SGPT) 87 U/L High 7-35 13 Ast (Sgot) 50 U/L High 5-34 14 Total Bilirubin 0.5 mg/dL 0.2-1.3 GFR Non- >60 ml/min/1.73m^ >=60 GFR >60 ml/min/1.73m^ >=60 Laboratory test finding 04/11/2014 Hep B Surface NON-REACTIVE Non- Reactive 15 Antigen Hep B Surface Antibody <3 mIU/ml 15, 16 Hepatic 04/11/2014 Total Protein 7.5 g/dL 6.4-8.3 Albumin 5.0 g/dL 3.8-5.5 Globulin 2.5 g/dL 2.0-4.8 A/G Ratio 2.0 CALC 0.6-2.3 Alk. Phosphatase 77 U/L 95 Alt (SGPT) 105 U/L High 7-35 17 Ast (Sgot) 57 U/L High 5-34 18 Total Bilirubin 0.6 mg/dL 0.2-1.3 Direct Bilirubn 0.3 mg/dL 0.0-0.6 Indirect Bilirubin 0.30 mg/dL 0.10-1.00 Laboratory test 04/11/2014 Hemoglobin A1c 6.3 % High 4.1-5.7 finding (Fma/CMC,CX) Hep C Abs 04/11/2014 Hep C Antibody NON-REACTIVE Non-Reactive 15 Hep C S/Co Ratio 0.1 0.0-0.7 15 Laboratory test finding 04/04/2014 Uric Acid 10.3 mg/dL High 2.5-9.2 19 Comprehensive Metabolic Prof 04/04/2014 Sodium 136 mEq/L 134-149 Potassium 3.3 mEq/L Low 3.6-5.5 20 Chloride 102 mEq/L 94-112 Carbon Dioxide 29 mEq/L 21-32 Glucose 124 mg/dL High 70-105 21 BUN 17 mg/dL 6-26 Creatinine 1.1 mg/dL 0.6-1.4 BUN/Creat Ratio 15.5 CALC 8.0-36.0 Calcium 10.1 mg/dL 8.6-10.2 Total Protein 7.3 g/dL 6.4-8.3 Albumin 4.9 g/dL 3.8-5.5 Globulin 2.4 g/dL 2.0-4.8 A/G Ratio 2.0 CALC 0.6-2.3 Alk. Phosphatase 69 U/L 22-95 Alt (SGPT) 71 U/L High 7-35 Ast (Sgot) 46 U/L High 5-34 Total Bilirubin 0.5 mg/dL 0.2-1.3 Lipid Profile 04/04/2014 Cholesterol 137 mg/dL 120-200 Triglycerides 136 mg/dL 30-200 HDL Cholesterol 36 mg/dL 30-70 LDL (Calculated) 74 CALC 0-129 VLDL Cholesterol 27 mg/dL 0-50 HDL Risk Factor 3.8 CALC 0.0-4.4 Laboratory test finding 04/04/2014 C-Reactive Protein 3.6 mg/L 0.0-5.0 22 Comprehensive Metabolic Prof 03/20/2013 Albumin 4.7 g/dL 3.8-5.5 Alk. Phos. 79 U/L 22-95 Alt (SGPT) 51 U/L High 10-40 23 Ast (Sgot) 32 U/L 5-34 BUN 20 mg/dL 6-26 Calcium 9.9 mg/dL 8.6-10.2 Chloride 101 mEq/L 94-112 Creatinine 1.2 mg/dL 0.6-1.4 Carbon Dioxide 24 mEq/L 21-32 Glucose 130 mg/dL High 70-105 24 Sodium 140 mEq/L 134-149 Total Bilirubin 0.5 mg/dL 0.2-1.3 Total Protein 7.1 g/dL 6.3-8.1 Potassium 3.8 mEq/L 3.6-5.5 Globulin 2.5 g/dL 2.0-4.8 A/G Ratio 1.9 Calc 0.6-2.3 BUN/Creat Ratio 16.8 Calc 8.0-36.0 Lipid Profile 03/20/2013 Cholesterol 153 mg/dL 120-200 HDL 35 mg/dL 30-70 Triglycerides 185 mg/dL 30-200 HDL Risk Factor 4.4 CALC 0.0-4.4 LDL (Calculated) 81 CALC 0-129 VLDL (Calculated) 37 mg/dL 0-50 Laboratory test finding 03/20/2013 Uric Acid 9.4 mg/dL High 2.5-9.2 25 1 Because ethnic data is not always readily available, this report includes an eGFR for both -Americans and non- Americans. The National Kidney Disease Education Program (NKDEP) does not endorse the use of the MDRD equation for patients that are not between the ages of 18 and 70, are , have extremes of body size, muscle mass, or nutritional status, or are non- or non-. According to the National Kidney Foundation, irrespective of diagnosis, the stage of the disease is based on the level of kidney function: Stage Description GFR(mL/min/1.73 m(2)) 1 Kidney damage with normal or decreased GFR 90 2 Kidney damage with mild decrease in GFR 60-89 3 Moderate decrease in GFR 30-59 4 Severe decrease in GFR 15-29 5 Kidney failure <15 (or dialysis) 2 Acute inflammation: >10.00 3 Lawn Care Specialist: [id number] 5 SEE RESULT BELOW Name: CHELSIE VINCENT : [address]: Brayden Zayas MD Acct: [id number] Unit: [id number] AGE: 50 Location: ENDOCEC Re05/06/16 SEX: M Status: DEP REF SPEC: [id number] DAVID: 05/06/16-[address] [facility] [address]: Brayden Zayas MD REQ: [id number] RECD: 05/06/16 STATUS: LATOSHA CHERY DR: Daria Paige MD _ ORDERED: LEVEL IV/2 COMMENTS: [id number] FINAL DIAGNOSIS 1. Colon, 40 cm, biopsy: -- Inflamed hyperplastic polyp. 2. Colon, rectum, biopsy: -- Hyperplastic polyp. CLINICAL HISTORY No history given POST-OPERATIVE DIAGNOSIS Colonoscopy to terminal ileum - cold snare/clip at 40 cm, biopsy at rectum, tics; 5 years GROSS DESCRIPTION 1. The specimen is received in formalin labeled, Colon Polyp at 40 cm, and consists of a 0.7 x 0.5 x 0.4 cm bates-white polypoid soft tissue fragment, which is inked, trisected and entirely submitted in one cassette. 2. The specimen is received in formalin labeled, Biopsy Rectal Polyp, and consists of a 0.4 x 0.3 x 0.3 cm bates-red polypoid soft tissue fragments, which is entirely submitted in one cassette. Signed (signature on file) Billy Vasquez MD 1207 END OF REPORT * ML=Testing performed at Main Lab DEPARTMENT OF PATHOLOGY, [address] [place] [address] Billy Vasquez M.D. Director [facility] # [id number] 6 RESULTS VERIFIED BY REPEAT ANALYSIS 7 RESULTS VERIFIED BY REPEAT ANALYSIS 8 RESULTS VERIFIED BY REPEAT ANALYSIS 9 consistent w/ previous results 10 RESULTS VERIFIED BY REPEAT ANALYSIS 11 RESULTS VERIFIED BY REPEAT ANALYSIS 12 consistent w/ previous results 13 consistent w/ previous results 14 consistent w/ previous results 15 2SST 16 The CDC defines an adequate response to vaccinations as a result >=10 mIU/ml. Results 8-12 mIU/ml are considered equivocal and should be interpreted in the context of other factors (clinical status, follow-up testing, associated risk factors etc.). Repeat testing is suggested if clinically indicated. 17 consistent w/ previous results 18 consistent w/ previous results 19 RESULTS VERIFIED BY REPEAT ANALYSIS 20 RESULTS VERIFIED BY REPEAT ANALYSIS 21 RESULTS VERIFIED BY REPEAT ANALYSIS 22 1SST 23 RESULT ANTIONETTE'D 24 RESULT ANTIONETTE'D 25 RESULT ANTIONETTE'D Procedures Date CPT Code Description Status Comment 01/25/2017 Colonoscopy Completed 5 years Encounters Type Date Location Provider CPT E/M Dx Office Visit 11/18/2015 9:00a [facility] Office Daria Paige M.D. 78642 I10 E78.4 M10.9 E11.9 K76.0 Z12.11 Office Visit 05/15/2015 8:40a [facility] Office Daria Paige M.D. 01599 I10 E78.4 M10.9 R94.5 R73.01 Z12.11 M79.604 F41.8 Office Visit 10/03/2014 9:00a [facility] Office Manish Fernandez M.D. 55332 401.1 272.4 790.21 274.9 794.8 Office Visit 04/11/2014 8:00a [facility] Office Manish Fernandez M.D. 76696 794.8 274.9 790.21 401.1 Office Visit 04/04/2014 10:00a [facility] Office Manish Fernandez M.D. 89414 V70.0 401.1 272.4 311 274.9 Office Visit 04/24/2013 12:00p [facility] Office Manish Fernandez M.D. 63281 V72.83 V72.84 366.9 Office Visit 03/20/2013 8:00a Main Office Manish Fernandez M.D. 61416 401.1 272.4 300.00 274.9 368.9 Plan of Care 01/25/2017 - Daria Paige M.D.Z00.00 Encntr for general adult medical exam w/o abnormal findingsComments:Encourage an active and healthy lifestyle with proper eating habits including fruits, vegetables, 6-8 glasses of water a day and monitoring portion size. Recommend 30 minutes of daily physical activityincluding walking, aerobic exercise, sports, yoga or dance. Any activity is better than no activity.Recommend routine eye and dental exams. Next physical is due in 1-2 years. Recommend annual influenza [id number] Essential (primary) hypertensionNew Labs:Comp Metabolic-ALL Lab CompaniLipid Panel-ALL Lab CompaniesCBC Electronic-ALL Lab CompaniUa - Micro If Indicated ( CentrFree T4 (Fma/labcorp)TSH (Fma/CMC/[facility])Comments:The patient will continue to monitor blood pressure and let me know the blood pressure results if there are readings persistently above 140/80. Goal blood pressure is less than 140/80. Recommend low salt/cardiac diet and routine exercise.Follow up:3 moE11.9 Type 2 diabetes mellitus without complicationsNew Labs:Hemoglobin A1c ( Fma)Microalb, Random (Fma/CMC/CTX)Comments:Recommend yearly diabetic eye and foot exams, and check on blood pressure periodically. Goal blood sugar is less than 140 in the morning or A1c less than 7.K76.0 Fatty (change of) liver, not elsewhere ordvcvrdatB98.0 Calculus of kidneyComments:following lobzonwH60.1 Testicular hypofunctionNew Labs:Free & Total TestosteronePSA (ALL Lab Comp) Comments:previously on supplement but caused high BPE66.9 Obesity, unspecifiedComments:Counseled on heart healthy diet such as Mediterranean diet. Eat protein and vegetables first then carbohydrates last. Get at least 150 minutes of moderate aerobic activity or 75 minutes of vigorous aerobic activity a week, or a combination of moderate and vigorous activity. General goal of 30 minutes of physical activity a day. discussed "hand method" for portion control Fist=carb serving (potato/rice/pasta/bread/starch)Palm size and thickness=serving of proteinwhole hand=vegetablesOne knuckle=fats/butter/oil/ dressing/hopkins consider Mediterranean diet as a guide for healthy eatingAllComments:~B_~U_Medication Management~b_~u_ Patient Understands medications he's taking? Yes No Are there Barriers to Adherence? Yes No Has the patient been asked about herbal supplements and therapies, and OTC meds? Yes No
[2017-02-22 07:32] VITALS: BP 151/108
--- NOTE | 2017-02-22 07:58 | UC ---
Skin Complaint HPI - HPI Summary HPI Summary: Rash and small macules that are random and are mainly on the extremities. Not on the trunk and not involving groin or fingers. They do have pets. He seems to be the only one in the house with these rashes. They are very itchy. No new products, detergents, medications. - History of Current Complaint Chief Complaint: UCSkin Time Seen by Provider: 02/22/17 07:37 Stated Complaint: SKIN COMPLAINT Hx Obtained From: Patient Onset/Duration: Lasting Weeks Skin Exposure Onset/Duration: Weeks Ago Onset Severity: Moderate Current Severity: Moderate Location: Diffuse Character: Pruritus, Raised Aggravating Factor(s): Touch Alleviating Factor(s): OTC Meds Associated Signs & Symptoms: Positive: Rash. Negative: Nausea, Vomiting, Cough , Wheezing, Chest Pain, Hoarseness, Throat Tightening, Abdominal Pain, Lightheadedness, Drainage, Bruising, Tenderness, Red Streaks, Joint Swelling - Allergy/Home Medications Allergies/Adverse Reactions: Allergies Allergy/AdvReac Type Severity Reaction Status Date / Time No Known Allergies Allergy Verified 02/22/17 07:26 Review of Systems Skin: Rash All Other Systems Reviewed And Are Negative: Yes PMH/Surg Hx/FS Hx/Imm Hx Previously Healthy: No Cardiovascular History: Hypertension - Surgical History Surgical History: Yes Surgery Procedure, Year, and Place: bilateral cataract extraction with IOL - 2014 - . right eye glaucoma procedure in [facility] office- july 2016. detached retina procedure at [place] - 2015. hydrocele surgery - Family History Known Family History: Positive: None, Cardiac Disease Negative: Blood Disorder - Social History Alcohol Use: Occasionally Alcohol Amount: couple glasses mixed drinks per week Substance Use Type: None Smoking Status (MU): Current Some Day Smoker Type: Cigars Amount Used/How Often: Occasionally When Did the Patient Quit Smoking/Using Tobacco: 2009 - Immunization History Most Recent Influenza Vaccination: October 2016 Physical Exam Triage Information Reviewed: Yes Appearance: Well-Appearing, Obese Vital Signs: Initial Vital Signs Temp 98.1 F 02/22/17 07:24 Pulse 90 02/22/17 07:24 Resp 16 02/22/17 07:24 BP 151/108 02/22/17 07:24 Pulse Ox 97 02/22/17 07:24 Vital Signs Reviewed: Yes Eye Exam: Normal Eyes: Positive: Conjunctiva Clear ENT: Positive: Normal ENT inspection Neck: Negative: Nuchal Rigidity Respiratory: Positive: No respiratory distress, No accessory muscle use. Negative: Respiratory distress Cardiovascular: Positive: Brisk Capillary Refill Abdomen Description: Negative: Distended Musculoskeletal: Positive: ROM Intact, No Edema Neurological: Positive: Alert, Muscle Tone Normal. Negative: Fatigued Psychological: Positive: Age Appropriate Behavior Skin Exam: Other - scatterred fine macuoles of the extremeties. Occassionally they are in a row. Course/Dx - Diagnoses Provider Diagnoses: insect bites Discharge - Discharge Plan Condition: Good Disposition: HOME Prescriptions: Triamcinolone 0.5% OINT * 1 applic TOPICAL BID #1 tube Patient Education Materials: Insect Bite or Sting (ED) Referrals: Daria Paige MD [Primary Care Provider] - If Needed
== END 2017-02-22 07:56 | disposition home or self-care (01) ==
LOC: UCCORT 07:12
DX: S40.862A Insect bite (nonvenomous) of left upper arm, initial encounter (principal); S40.861A Insect bite (nonvenomous) of right upper arm, initial encounter; S80.862A Insect bite (nonvenomous), left lower leg, initial encounter; S80.861A Insect bite (nonvenomous), right lower leg, initial encounter; W57.XXXA Bitten or stung by nonvenomous insect and other nonvenomous arthropods, initial encounter; Y93.9 Activity, unspecified; Y92.9 Unspecified place or not applicable; I10 Essential (primary) hypertension; Z72.0 Tobacco use; E66.9 Obesity, unspecified
CPT/HCPCS: 99212; G0463

== ENCOUNTER 2017-03-06 15:08 | Emergency (ER) | payer BC ==
[2017-03-06 17:35] VITALS: BP 148/95
--- NOTE | 2017-03-06 18:03 | UC ---
Respiratory Complaint HPI - HPI Summary HPI Summary: 51 yo male with 2-3 day hx of cough and sore throat daughter has strep no f/c no runny nose or sinus complaints no wheezing - History of Current Complaint Chief Complaint: UCGeneralIllness Stated Complaint: ST, FEVER, VIMAL. Time Seen by Provider: 03/06/17 17:55 Hx Obtained From: Patient Onset/Duration: Gradual Onset, Lasting Days Timing: Constant Severity Initially: Mild Severity Currently: Mild Pain Intensity: 3 Pain Scale Used: 0-10 Numeric Character: Cough: Nonproductive Aggravating Factors: Nothing Alleviating Factors: Nothing Associated Signs And Symptoms: Positive: Negative - Allergies/Home Medications Allergies/Adverse Reactions: Allergies Allergy/AdvReac Type Severity Reaction Status Date / Time No Known Allergies Allergy Verified 03/06/17 17:35 PMH/Surg Hx/FS Hx/Imm Hx Previously Healthy: Yes Endocrine History: Dyslipidemia, Other Other Endocrine History: gout Cardiovascular History: Hypertension - Surgical History Surgical History: Yes Surgery Procedure, Year, and Place: bilateral cataract extraction with IOL - 2014 - . right eye glaucoma procedure in [facility] office- july 2016. detached retina procedure at [place] - 2015. hydrocele surgery. KIDNEY STONE EXTRACTION - Family History Known Family History: Positive: Cardiac Disease, Hypertension, Diabetes Negative: Blood Disorder - Social History Alcohol Use: Weekly Alcohol Amount: couple glasses mixed drinks per week Substance Use Type: None Smoking Status (MU): Current Some Day Smoker Type: Cigars Amount Used/How Often: Occasionally When Did the Patient Quit Smoking/Using Tobacco: 2009 - Immunization History Most Recent Influenza Vaccination: October 2016 Review of Systems Constitutional: Negative Skin: Negative Eyes: Negative ENT: Sore Throat Respiratory: Cough Cardiovascular: Negative Gastrointestinal: Negative Genitourinary: Negative Motor: Negative Neurovascular: Negative Musculoskeletal: Negative Neurological: Negative Psychological: Negative Is Patient Immunocompromised?: No All Other Systems Reviewed And Are Negative: Yes Physical Exam Triage Information Reviewed: Yes Appearance: Well-Appearing, No Pain Distress, Well-Nourished Vital Signs: Initial Vital Signs Temp 98.1 F 03/06/17 17:28 Pulse 92 03/06/17 17:28 Resp 20 03/06/17 17:28 BP 148/95 03/06/17 17:28 Pulse Ox 98 03/06/17 17:28 Vital Signs Reviewed: Yes Eyes: Positive: Conjunctiva Clear ENT: Positive: Pharyngeal erythema. Negative: Nasal congestion, Nasal drainage Neck: Positive: Supple, Nontender Respiratory: Positive: Lungs clear, Normal breath sounds, No respiratory distress Cardiovascular: Positive: RRR Musculoskeletal: Positive: ROM Intact, No Edema Neurological: Positive: Alert Psychological Exam: Normal Skin Exam: Normal UC Diagnostic Evaluation - Laboratory O2 Sat by Pulse Oximetry: 98 Respiratory Course/Dx - Course Course Of Treatment: strep and influenza (-) - Differential Dx/Diagnosis Provider Diagnoses: viral syndrome. acute cough and pharyngitis Discharge - Discharge Plan Condition: Stable Disposition: HOME Patient Education Materials: Viral Syndrome (ED) Referrals: Daria Paige MD [Primary Care Provider] - 4 Days (if not better) Additional Instructions: strep and flu test (-) recheck for new or worsening symptoms or if not better in 3-4 days rest fluids tylenol
== END 2017-03-06 18:23 | disposition home or self-care (01) ==
LOC: UCCORT 15:08
DX: B34.9 Viral infection, unspecified (principal); R05 Cough; J02.9 Acute pharyngitis, unspecified; E78.5 Hyperlipidemia, unspecified; I10 Essential (primary) hypertension; M10.9 Gout, unspecified; Z87.442 Personal history of urinary calculi; Z72.0 Tobacco use
CPT/HCPCS: 87502; 87651; 99211; G0463

== ENCOUNTER 2019-04-15 07:05 | Emergency (ER) | payer BC ==
[2019-04-15 07:22] VITALS: BP 139/93
--- NOTE | 2019-04-15 07:22 | UC ---
Abdominal Pain Female HPI - HPI Summary HPI Summary: 53 y/o male with abdominal pain . States discomfort about 3/10 lower abdomen . no fever. no UTI sx like dysuria, urgency, frequency, normal BM yesterday. passing gas. No n/v/d. tums/ pepto/ motrin slightly improve sx. no kidney stone sx as he had in the past. intermittent and crampy but no stabbing. - History of Current Complaint Stated Complaint: ABDOMINAL PAIN Time Seen by Provider: 04/15/19 07:20 Hx Obtained From: Patient Onset/Duration: Gradual Onset Allergies/Adverse Reactions: Allergies Allergy/AdvReac Type Severity Reaction Status Date / Time No Known Allergies Allergy Verified 04/15/19 07:22 Home Medications: Home Medications LORazepam TAB(*) [Ativan 1 MG TAB (*)] 1 mg PO Q8H PRN 05/05/15 [History Confirmed 04/15/19] Lisinopril/HCTZ 20/12.5(NF) [Zestoretic 20/12.5(NF)] 2 tab PO QPM 05/05/15 [ History Confirmed 04/15/19] Allopurinol TAB* [Zyloprim 100 MG TAB*] 100 mg PO QAM 12/25/16 [History Confirmed 04/15/19] Aspirin 81 mg CHEW TAB* [Aspirin Low Dose TAB*] 81 mg PO QAM 12/25/16 [History Confirmed 04/15/19] Atorvastatin* [Lipitor*] 10 mg PO QPM 12/25/16 [History Confirmed 04/15/19] Doxazosin TAB* [Cardura TAB*] 8 mg PO BEDTIME 12/29/16 [History Confirmed ] Metoprolol Tartrate TAB* [Lopressor TAB*] 50 mg PO DAILY 04/15/19 [History Confirmed 04/15/19] Potassium Chlor TAB* [Klor Con ER TAB*] 20 meq PO BID 04/15/19 [History Confirmed 04/15/19] amLODIPine TAB* [Norvasc 5 mg TAB*] 5 mg PO DAILY 04/15/19 [History Confirmed ] PMH/Surg Hx/FS Hx/Imm Hx Previously Healthy: Yes Endocrine History: Diabetes Cardiovascular History: Hypertension GI/ History: Kidney Stones - Surgical History Surgical History: Yes Surgery Procedure, Year, and Place: bilateral [place] [facility] [place]uly 2016. detached retina procedure at [place] - 2016. hydrocele surgery. KIDNEY STONE EXTRACTION - Family History Known Family History: Positive: Cardiac Disease, Hypertension, Diabetes Negative: Blood Disorder - Social History Alcohol Use: Weekly Alcohol Amount: couple glasses mixed drinks per week Substance Use Type: None Smoking Status (MU): Current Some Day Smoker Type: Cigars Amount Used/How Often: Occasionally When Did the Patient Quit Smoking/Using Tobacco: 2009 - Immunization History Most Recent Influenza Vaccination: October 2016 Review of Systems All Other Systems Reviewed And Are Negative: Yes Gastrointestinal: Positive: Abdominal Pain Physical Exam Triage Information Reviewed: Yes Appearance: Well-Appearing, No Pain Distress, Well-Nourished Vital Signs Reviewed: Yes Respiratory Exam: Normal Cardiovascular Exam: Normal Abdominal Exam: Normal Abdomen Description: Positive: Hernia @ - small reducible umbilical hernia non tender, Other: - minimal tenderness over bladder. no acute abdomen. no gaurding. no rovsings. no cva tenderness. no rebound. no distension. soft. normal bowel sounds. Musculoskeletal Exam: Normal Neurological Exam: Normal Psychological Exam: Normal Skin Exam: Normal Abd Pain Female Course/Dx - Course Course Of Treatment: ? IC -- follow up with Urology . Go to ED if any concerns. he is agreeable and aware of plan - Differential Dx/Diagnosis Differential Diagnosis: Renal Colic, Urinary Tract Infection Provider Diagnosis: Bladder pain, Interstitial cystitis Discharge ED - Sign-Out/Discharge Documenting (check all that apply): Patient Departure All imaging exams completed and their final reports reviewed: No Studies - Discharge Plan Condition: Good Disposition: HOME Patient Education Materials: Interstitial Cystitis (ED) Forms: *Work Release Referrals: Daria Paige MD [Primary Care Provider] - (Please follow up with your Urologist as we discussed ) Additional Instructions: Today the urine shows no concerns. If your symptoms worsen please go to emergency room - Billing Disposition and Condition Condition: GOOD Disposition: Home
== END 2019-04-15 08:13 | disposition home or self-care (01) ==
LOC: UCCORT 07:05
DX: N30.10 Interstitial cystitis (chronic) without hematuria (principal); R39.89 Other symptoms and signs involving the genitourinary system; E11.9 Type 2 diabetes mellitus without complications; I10 Essential (primary) hypertension; F17.290 Nicotine dependence, other tobacco product, uncomplicated; Z79.82 Long term (current) use of aspirin; Z79.899 Other long term (current) drug therapy; Z87.442 Personal history of urinary calculi
CPT/HCPCS: 81003; 99211; G0463

== ENCOUNTER 2019-04-21 20:03 | Emergency (ER) | payer BC ==
[2019-04-21 20:16] VITALS: BP 134/89
--- NOTE | 2019-04-21 20:47 | UC ---
Abdominal Pain Male HPI - HPI Summary HPI Summary: 53-year-old male presents with complaints of onset of left lower quadrant pain yesterday evening. Describes pain as sharp and constant. Worsens with movement. Has taken ibuprofen with little relief in pain. States he had a colonoscopy approximately 3 years ago and was told he had some diverticula expresses a concern for possible diverticulitis. Reports normal brown formed stools. History of kidney stones but states that this pain is different than what he experienced with his kidney stones. Patient was evaluated at this facility on 04/15/2019 for some suprapubic discomfort. Had a normal urinalysis at that time. Denies fever, chills, nausea, vomiting, diarrhea, constipation, blood in stool, melena, back or flank pain, dysuria, frequency, urgency, hematuria, testicular pain or swelling. - History of Current Complaint Chief Complaint: UCAbdominalPain Stated Complaint: LOWER LEFT ABDOMEN PAIN Time Seen by Provider: 04/21/19 20:33 Hx Obtained From: Patient Pain Intensity: 6 - Allergies/Home Medications Allergies/Adverse Reactions: Allergies Allergy/AdvReac Type Severity Reaction Status Date / Time No Known Allergies Allergy Verified 04/21/19 20:16 Home Medications: Home Medications LORazepam TAB(*) [Ativan 1 MG TAB (*)] 1 mg PO Q8H PRN 05/05/15 [History Confirmed 04/21/19] Lisinopril/HCTZ 12.5(NF) [Zestoretic 08/02.5(NF)] 2 tab PO QPM 05/05/15 [ History Confirmed 04/21/19] Allopurinol TAB* [Zyloprim 100 MG TAB*] 100 mg PO QAM 12/25/16 [History Confirmed 04/21/19] Aspirin 81 mg CHEW TAB* [Aspirin Low Dose TAB*] 81 mg PO QAM 12/25/16 [History Confirmed 04/21/19] Atorvastatin* [Lipitor*] 10 mg PO QPM 12/25/16 [History Confirmed 04/21/19] Doxazosin TAB* [Cardura TAB*] 8 mg PO BEDTIME 12/29/16 [History Confirmed ] Metoprolol Tartrate TAB* [Lopressor TAB*] 50 mg PO DAILY 04/15/19 [History Confirmed 04/21/19] Potassium Chlor TAB* [Klor Con ER TAB*] 20 meq PO BID 04/15/19 [History Confirmed 04/21/19] amLODIPine TAB* [Norvasc 5 mg TAB*] 5 mg PO DAILY 04/15/19 [History Confirmed ] PMH/Surg Hx/FS Hx/Imm Hx Endocrine History: Dyslipidemia Cardiovascular History: Hypertension, Atrial Fibrillation - Surgical History Surgical History: Yes Surgery Procedure, Year, and Place: bilateral cataract extraction with IOL - 2014 - [facility] [place]. right eye glaucoma procedure in [facility] office- july 2016. detached retina procedure at [place] - 2015. hydrocele surgery. KIDNEY STONE EXTRACTION - Family History Known Family History: Positive: Cardiac Disease, Hypertension, Diabetes - Social History Occupation: Employed Full-time Lives: With Family Alcohol Use: Weekly Alcohol Amount: couple glasses mixed drinks per week Substance Use Type: None Smoking Status (MU): Current Some Day Smoker Type: Cigars Amount Used/How Often: Occasionally When Did the Patient Quit Smoking/Using Tobacco: 2009 - Immunization History Most Recent Influenza Vaccination: October 2016 Review of Systems All Other Systems Reviewed And Are Negative: Yes Constitutional: Negative: Fever, Chills Respiratory: Positive: Negative Cardiovascular: Positive: Negative Gastrointestinal: Positive: Abdominal Pain. Negative: Vomiting, Diarrhea, Nausea Genitourinary: Negative: Dysuria, Hematuria, Frequency, Urgency Musculoskeletal: Positive: Negative Neurological/Mental Status: Positive: Negative Is Patient Immunocompromised?: No Physical Exam - Summary Physical Exam Summary: GENERAL APPEARANCE: Alert and cooperative adult male who appears to be in no acute distress. CARDIAC: Normal S1 and S2. No S3, S4 or murmurs. Rhythm is regular. There is no peripheral edema, cyanosis or pallor. Extremities are warm and well perfused. Capillary refill is less than 2 seconds. Peripheral pulses intact. LUNGS: Clear to auscultation without rales, rhonchi, wheezing or diminished breath sounds. ABDOMEN: Positive bowel sounds. Soft, nondistended. Non-tender, reducible umbilical hernia. Tenderness of the LLQ without guarding or rebound. No masses or hepatosplenomegally noted. No CVA tenderness. MUSKULOSKELETAL: ROM intact to all extremities. No joint erythema or tenderness. Normal muscular development. Normal gait. SKIN: Skin normal color, texture and turgor with no lesions or eruptions. Triage Information Reviewed: Yes Vital Signs: Initial Vital Signs Temp 98.1 F 04/21/19 20:10 Pulse 89 04/21/19 20:10 Resp 14 04/21/19 20:10 BP 134/89 04/21/19 20:10 Pulse Ox 97 04/21/19 20:10 Vital Signs Reviewed: Yes Abd Pain Male Course/Dx - Course Course Of Treatment: 53-year-old male presents with complaints of onset of left lower quadrant pain yesterday evening. Describes pain as sharp and constant. Worsens with movement. Has taken ibuprofen with little relief in pain. States he had a colonoscopy approximately 3 years ago and was told he had some diverticula expresses a concern for possible diverticulitis. Reports normal brown formed stools. History of kidney stones but states that this pain is different than what he experienced with his kidney stones. Patient was evaluated at this facility on 04/15/2019 for some suprapubic discomfort. Had a normal urinalysis at that time. Denies fever, chills, nausea, vomiting, diarrhea, constipation, blood in stool, melena, back or flank pain, dysuria, frequency, urgency, hematuria, testicular pain or swelling. Afebrile. Mildly hypertensive with respect signs stable. On exam patient was noted to have positive bowel sounds, a soft, nondistended abdomen, non-tender, reducible umbilical hernia, tenderness of the LLQ without guarding, rebound, masses or hepatosplenomegally, and no CVA tenderness. Remainder of exam was unremarkable. I did review a colonoscopy report from 05/06/16 that noted he had to colorectal polyps removed but made no mention of diverticulosis at that time. I did discuss with the patient that I could not fully rule out the possibility of diverticulitis even with this report and I'm recommending further evaluation the emergency room to which the patient is agreeable. He is electing to transport via private vehicle to [facility] emergency room with his driving. - Differential Dx/Clinical Impression Differential Diagnosis/HQI/PQRI: Diverticulitis, Renal Colic, Urinary Tract Infection Provider Diagnosis: Left lower quadrant abdominal pain Discharge ED - Sign-Out/Discharge Documenting (check all that apply): Patient Departure All imaging exams completed and their final reports reviewed: No Studies - Discharge Plan Condition: Stable Disposition: HOME-RECOMMEND TO ED Referrals: Daria Paige MD [Primary Care Provider] - Additional Instructions: With your left lower quadrant pain and concern for possible diverticulitis I am recommending further evaluation in the emergency room at this time as I do not have the ability to evaluate you appropriately at this time. Please go directly to the emergency room from here. Do not eat or drink anything until you have been evaluated. - Billing Disposition and Condition Condition: STABLE Disposition: Home-Recommend to ED
== END 2019-04-21 21:06 | disposition home health service (06) ==
LOC: UCCORT 20:03
DX: R10.32 Left lower quadrant pain (principal); I10 Essential (primary) hypertension; I48.91 Unspecified atrial fibrillation; E78.5 Hyperlipidemia, unspecified; F17.290 Nicotine dependence, other tobacco product, uncomplicated; Z79.899 Other long term (current) drug therapy; Z79.82 Long term (current) use of aspirin
CPT/HCPCS: 99212; G0463

== ENCOUNTER 2019-04-21 21:52 | Emergency (ER) | payer BC ==
[2019-04-21] MEDS ORDERED: Morphine 4 MG/ML VIAL (1 ml) 4 MG/ML VIAL IV ONE (22:24)
[2019-04-21] MEDS ORDERED: NS 0.9% 1000 ML** 1,000 ML IV ONE (22:24)
[2019-04-21 22:34] LABS: ABS Basophils 0.1 10^3/ul (0-0.2); ABS Eosinophils 0.1 10^3/ul (0-0.6); ABS Lymphocytes 1.5 10^3/ul (1.0-4.8); ABS Monocytes 0.8 10^3/ul (0-0.8); ABS Neutrophils 6.3 10^3/ul (1.5-7.7); Eosinophil % 1.4 %; Hematocrit 45 % (42-52); Hemoglobin 14.9 g/dL (14.0-18.0); Lymphocyte % 17.4 %; Mean Corpuscular HGB Conc 33 g/dL (31-36); Mean Corpuscular Hemoglobin 26 pg (27-31); Mean Corpuscular Volume 78 fL (80-94); Mean Platelet Volume 7.5 fL (7.4-10.4); Platelet Count 196 10^3/uL (150-450); Red Cell Distribution Width 14 % (10-15); White Blood Count 8.8 10^3/uL (3.5-10.8)
--- NOTE | 2019-04-21 22:44 | ED ---
GI/ HPI - HPI Summary HPI Summary: 53-year-old male presents with left lower quadrant pain today. He states the pain has increased in intensity. pain doesn't radiate anywhere. He has a history of kidney stones but states that this feels different. Denies any urine symptoms. No diarrhea. Does have a history of diverticulosis on colonoscopy. Took some ibuprofen for the pain with minimal relief. He had bowel pain last week that resolved. Has history of high blood pressure. - History of Current Complaint Chief Complaint: EDAbdPain Time Seen by Provider: 04/21/19 22:05 Stated Complaint: LOWER LEFT ABD PAIN PER PT Pain Intensity: 6 - Allergy/Home Medications Allergies/Adverse Reactions: Allergies Allergy/AdvReac Type Severity Reaction Status Date / Time No Known Allergies Allergy Verified 04/21/19 23:07 Home Medications: Home Medications LORazepam TAB(*) [Ativan 1 MG TAB (*)] 1 mg PO Q8H PRN 05/05/15 [History Confirmed 04/21/19] Lisinopril/HCTZ 20/12.5(NF) [Zestoretic 20/12.5(NF)] 2 tab PO QPM 05/05/15 [ History Confirmed 04/21/19] Allopurinol TAB* [Zyloprim 100 MG TAB*] 100 mg PO QAM 12/25/16 [History Confirmed 04/21/19] Aspirin 81 mg CHEW TAB* [Aspirin Low Dose TAB*] 81 mg PO QAM 12/25/16 [History Confirmed 04/21/19] Atorvastatin* [Lipitor*] 10 mg PO QPM 12/25/16 [History Confirmed 04/21/19] Doxazosin TAB* [Cardura TAB*] 8 mg PO BEDTIME 12/29/16 [History Confirmed ] Metoprolol Tartrate TAB* [Lopressor TAB*] 50 mg PO DAILY 04/15/19 [History Confirmed 04/21/19] Potassium Chlor TAB* [Klor Con ER TAB*] 20 meq PO BID 04/15/19 [History Confirmed 04/21/19] amLODIPine TAB* [Norvasc 5 mg TAB*] 5 mg PO DAILY 04/15/19 [History Confirmed ] Colchicine* [Colcrys*] 0.6 mg PO TID PRN 04/21/19 [History Confirmed 04/21/19] Amoxicillin/Clavulanate TAB* [Augmentin TAB 875*] 875 mg PO BID #19 tab [Rx] metroNIDAZOLE [Flagyl 500 MG TAB] 500 mg PO TID #29 tab 04/22/19 [Rx] PMH/Surg Hx/FS Hx/Imm Hx Endocrine/Hematology History: Denies: Hx Diabetes, Hx Thyroid Disease Cardiovascular History: Reports: Hx Hypertension, Other Cardiovascular Problems/ Disorders - hyperlipidemia Respiratory History: Reports: Hx Asthma, Hx Sleep Apnea - no diagnosis, didn't complete sleep study- couldn't sleep Denies: Hx Chronic Obstructive Pulmonary Disease (COPD), Other Respiratory Problems/Disorders GI History: Denies: Hx Ulcer, Other GI Disorders History: Reports: Hx Kidney Stones - 1x 20 yrs ago- passed on own, has 1 now. LT URETERAL CALC REMOVAL 12/30/16, Other Problems/Disorders - left hydrocele Musculoskeletal History: Reports: Hx Arthritis, Other Musculoskeletal History - gout - last flare up approx 3-4 months ago Sensory History: Reports: Hx Cataracts - bilateral, Hx Contacts or Glasses - glasses, Hx Glaucoma - right eye Denies: Hx Hearing Aid Opthamlomology History: Reports: Hx Cataracts - bilateral, Hx Contacts or Glasses - glasses, Hx Glaucoma - right eye Neurological History: Denies: Other Neuro Impairments/Disorders Psychiatric History: Reports: Hx Anxiety - on med, Hx Depression - on med - Surgical History Surgery Procedure, Year, and Place: bilateral cataract extraction with [place]OL [place] [facility] [place] procedure in [facility]- july 2016. detached retina procedure at [place] - 2015. hydrocele surgery. KIDNEY STONE EXTRACTION Hx Anesthesia Reactions: No Infectious Disease History: No Infectious Disease History: Denies: Hx Clostridium Difficile, Hx Hepatitis, Hx Human Immunodeficiency Virus (HIV), Hx of Known/Suspected MRSA, Hx Shingles, Hx Tuberculosis, Hx Known/ Suspected VRE, Hx Known/Suspected VRSA, History Other Infectious Disease, Traveled Outside the [place] in Last 30 Days - Family History Known Family History: Positive: Cardiac Disease, Hypertension, Diabetes - Social History Alcohol Use: Weekly Alcohol Amount: couple glasses mixed drinks per week Substance Use Type: Reports: None Hx Tobacco Use: Yes Smoking Status (MU): Current Some Day Smoker Type: Cigars Amount Used/How Often: Occasionally Review of Systems Negative: Fever Negative: Chest Pain Negative: Shortness Of Breath Positive: Abdominal Pain. Negative: Vomiting, Diarrhea, Nausea All Other Systems Reviewed And Are Negative: Yes Physical Exam Triage Information Reviewed: Yes Vital Signs On Initial Exam: Initial Vitals Temp Pulse Resp BP Pulse Ox 97.1 F 84 15 129/89 95 04/21/19 21:58 04/21/19 21:58 04/21/19 21:58 04/21/19 21:58 04/21/19 21:58 Vital Signs Reviewed: Yes Appearance: Positive: Well-Appearing Skin: Positive: Warm, Dry Head/Face: Positive: Normal Head/Face Inspection Eyes: Positive: Normal, Conjunctiva Clear ENT: Positive: Pharynx normal Respiratory/Lung Sounds: Positive: Clear to Auscultation, Breath Sounds Present Cardiovascular: Positive: Normal, RRR Abdomen Description: Positive: Soft, Other: - tenderness in LLQ Bowel Sounds: Positive: Present Musculoskeletal: Positive: Normal Neurological: Positive: Normal Psychiatric: Positive: Normal Procedures - Sedation Patient Received Moderate/Deep Sedation with Procedure: No Diagnostics - Vital Signs Vital Signs Temp Pulse Resp BP Pulse Ox 04/21/19 21:58 97.1 F 84 15 129/89 95 - Laboratory Lab Results: Lab Results 04/21/19 Range/Units 22:25 WBC 8.8 (3.5-10.8) 10^3/uL RBC 5.70 H (4.18-5.48) 10^6 /uL Hgb 14.9 (14.0-18.0) g/dL Hct 45 (42-52) % MCV 78 L (80-94) fL MCH 26 L (27-31) pg MCHC 33 (31-36) g/dL RDW 14 (10-15) % Plt Count 196 (150-450) 10^3/uL MPV 7.5 (7.4-10.4) fL Neut % (Auto) 71.4 % Lymph % (Auto) 17.4 % [place] % (Auto) 9.2 % Eos % (Auto) 1.4 % Baso % (Auto) 0.6 % Absolute Neuts (auto) 6.3 (1.5-7.7) 10^3/ul Absolute Lymphs (auto) 1.5 (1.0-4.8) 10^3/ul Absolute Monos (auto) 0.8 (0-0.8) 10^3/ul Absolute Eos (auto) 0.1 (0-0.6) 10^3/ul Absolute Basos (auto) 0.1 (0-0.2) 10^3/ul Absolute Nucleated RBC 0.0 10^3/ul Nucleated RBC % 0.0 Result Diagrams: 04/21/19 22:25 04/21/19 22:25 Lab Statement: Any lab studies that have been ordered have been reviewed, and results considered in the medical decision making process. - CT abd CT Interpretation Completed By: Radiologist Summary of CT Findings: IMPRESSION: 1. Findings consistent with acute diverticulitis at the junction of the descending and sigmoid colon in the left lower quadrant. No evidence of perforation or abscess. As the differential includes diverticulitis, nonspecific colitis, and neoplasm, follow-up CT is recommended after appropriate therapy to ensure clearing. 2. Right renal cysts. 3. Hepatic steatosis. GIGU Course/Dx - Course Course Of Treatment: 53-year-old male presents with left lower quadrant pain today. He states the pain has increased in intensity. pain doesn't radiate anywhere. He has a history of kidney stones but states that this feels different. Denies any urine symptoms. No diarrhea. Does have a history of diverticulosis on colonoscopy. Took some ibuprofen for the pain with minimal relief. He had bowel pain last week that resolved. Has history of high blood pressure. On exam tenderness left lower quadrant. wbc normal. crp slightly elevated. CT shows diverticulitis. will treat with augmentin and flagyl. patient has follow up with primary. patient understand and agrees with plan. - Diagnoses Differential Diagnoses - Male: Diverticulosis, Gastroenteritis (Viral), Ureteral Calculi Provider Diagnoses: Diverticulitis Discharge ED - Sign-Out/Discharge Documenting (check all that apply): Patient Departure - Discharge Plan Condition: Good Disposition: HOME Prescriptions: Amoxicillin/Clavulanate TAB* [Augmentin TAB 875*] 875 mg PO BID #19 tab metroNIDAZOLE [Flagyl 500 MG TAB] 500 mg PO TID #29 tab Patient Education Materials: Diverticulitis (ED), Diverticulitis Diet (ED) Referrals: Daria Paige MD [Primary Care Provider] - Additional Instructions: Take augmentin twice a day for 10 days, first dose given in ED Take Flagyl every 8 hours for 10 days, first dose given in ED Follow clear liquid diet until symptoms improve follow up with primary Return to ED if develop any new or worsening symptoms - Billing Disposition and Condition Condition: GOOD Disposition: Home - Attestation Statements Provider Attestation: I was available for consultation for this patient. I did not evaluate the patient or participate in any medical decision making or disposition decisions unless I am specifically named in the chart as having consulted on the patient. If I have consulted on the patient, please see my own ED note on the patient encounter. Kasandra Ortiz MD
[2019-04-21 22:51] LABS: Albumin 4.6 g/dL (3.2-5.2); Albumin/Globulin Ratio 1.9 (1-3); BUN/Creatinine Ratio 15.8 (8-20); C Reactive Protein 14.96 mg/L (<8.01); Calcium 9.6 mg/dL (8.6-10.3); EGFR African American 92.8 (>60); EGFR Non-African American 76.7 (>60); Globulin 2.4 g/dL (2-4); Potassium 3.6 mmol/L (3.5-5.0); Total Bilirubin 0.3 mg/dL (0.2-1.0)
[2019-04-21 23:45] LABS: Urine Appearance Clear; Urine Bilirubin Negative (Negative); Urine Blood Negative (Negative); Urine Color Straw; Urine Glucose Negative (Negative); Urine Ketones Negative (Negative); Urine Nitrite Negative (Negative); Urine Protein Negative (Negative); Urine Specific Gravity 1.006 (1.010-1.030); Urine Urobilinogen Negative (Negative)
[2019-04-21] MEDS ORDERED: Iohexol 300* (CONTRAST) 10 ML SDV IV ONE (23:46)
[2019-04-22] MEDS ORDERED: Amoxicillin/Clavulanate TAB* 875 MG PO ONE (01:17)
[2019-04-22] MEDS ORDERED: metroNIDAZOLE TAB* 250 MG PO ONE (01:17)
[2019-04-22 01:28] VITALS: BP 148/90
== END 2019-04-22 01:28 | disposition home or self-care (01) ==
LOC: ED 21:52
DX: K57.92 Diverticulitis of intestine, part unspecified, without perforation or abscess without bleeding (principal); R10.32 Left lower quadrant pain; F41.9 Anxiety disorder, unspecified; I10 Essential (primary) hypertension; Z87.442 Personal history of urinary calculi; Z72.0 Tobacco use
CPT/HCPCS: 36415; 74177; 80053; 81003; 83605; 83690; 85025; 86140; 96360; 99283; A9270-GY; J2270; Q9967